=== PATIENT | female | born 1960 | race Caucasian/White ===

== ENCOUNTER 2017-11-03 09:21 | Day surgery (SDC) | payer BC ==
[~2017-11-03 09:21] MED LIST: Buffered Lidocaine 0.9% SYRIN* 5 ML/SYR SYRINGE INTRADERM ONE; Dexamethasone IV* 4 MG/ML 1 ML (4 MG) IV SLOW PU ONE; Famotidine IV* 10 MG/ML 2 ML (20 mg) IV ONE
[2017-11-03] MEDS ORDERED: Dexamethasone IV* 4 MG/ML 1 ML (4 MG) ONE (09:43)
[2017-11-03] MEDS ORDERED: Famotidine IV* 10 MG/ML 2 ML (20 mg) ONE (09:43)
[2017-11-03] MEDS ORDERED: Naloxone* 0.4 MG/ML 1 ML VIAL IV PRN (11:35)
[2017-11-03] MEDS ORDERED: DiMENhydriNATE IV* 50 MG/ML VIAL IV PUSH PRN (11:35)
[2017-11-03] MEDS ORDERED: fentaNYL* 50 MCG/ML 2 ML VIAL (100 MCG VIAL) IV PRN (11:35)
[2017-11-03] MEDS ORDERED: Ondansetron INJ* 2 MG/ML VIAL IV PRN (11:35)
[2017-11-03] MEDS ORDERED: oxyCODONE/Acetamin 5/325 MG* TAB PO PRN (11:35)
[2017-11-03] MEDS ORDERED: fentaNYL* 50 MCG/ML 2 ML VIAL (100 MCG VIAL) ONE (11:43)
[2017-11-03] MEDS ORDERED: Ketorolac INJ* 30 MG/ML 1 ML VIAL ONE (11:43)
[2017-11-03] MEDS ORDERED: Propofol* 10 MG/ML 20 ML BTL IV PUSH ONE ×2 (11:43→11:45)
[2017-11-03] MEDS ORDERED: Ondansetron INJ* 2 MG/ML VIAL ONE (11:43)
[2017-11-03] MEDS ORDERED: Chloroprocaine 2%* 20 ML VIAL ONE (11:44)
[2017-11-03] MEDS ORDERED: Ibuprofen TAB* 600 MG ONE (14:58)
[2017-11-03 15:09] VITALS: BP 107/81
--- NOTE | 2017-11-04 13:35 | OP ---
DATE OF OPERATION: 11/03/17 - [facility] DATE OF : 58 SURGEON: Yasemin Reyes MD QUILL LAYER: None. ANESTHESIOLOGIST: Emre Queen MD ANESTHESIA: Spinal PRE-OP DIAGNOSIS: Postmenopausal bleeding, endometrial thickening on ultrasound. POST-OP DIAGNOSIS: Postmenopausal bleeding, endometrial thickening on ultrasound. OPERATIVE PROCEDURE: Dilation curettage and hysteroscopy. ESTIMATED BLOOD LOSS: Minimal. URINE OUTPUT: 250 cc of clear yellow urine. FLUIDS: 1400 cc of crystalloid. FINDINGS: Revealed normal endometrial lining. No evidence of excrescences, polyps, or mass. Normal tubal ostia seen. Very thin endometrium without evidence of any thickening. Normal endocervical canal, small nabothian cyst noted on cervix. COMPLICATIONS: None apparent. DISPOSITION: Stable to recovery room. DESCRIPTION OF PROCEDURE: The patient was placed in dorsal lithotomy position. Legs were placed in Woodworth Holland stirrups. The perineum and vagina were prepped and draped in a sterile standard fashion. The patient was identified with universal protocol for correct procedure, position, and patient. A sterile speculum was inserted after drainage of the bladder with self-cath for clear yellow urine 250 cc. The cervix was visualized, grasped in the anterior lip with a single- tooth tenaculum and dilated using Hegar dilators to #6. A 5- mm hysteroscope was then inserted. Normal uterine cavity was visualized without evidence of masses, excrescences, or thickening and the tissue was noted to be very thin and atrophic. Hysteroscope was then removed. A sharp curettage was then performed. Hysteroscope was inserted documenting excellent sampling of the endometrial canal. Hysteroscope was removed. The single-tooth tenaculum was removed. Sterile speculum was removed. The patient was returned to the dorsal supine position and taken to the recovery room in stable condition. All sponge, instrument, and blade counts were correct throughout the case. The patient tolerated the procedure well and went to recovery room in stable condition. [id number]/[facility] #: [id number] [facility]
== END 2017-11-03 15:08 | disposition home or self-care (01) ==
LOC: OR 09:21
PROVIDERS: ATTEND Obstetrics & Gynecology
DX: Z01.818 Encounter for other preprocedural examination (principal); N95.0 Postmenopausal bleeding; R93.8 Abnormal findings on diagnostic imaging of other specified body structures; I10 Essential (primary) hypertension; E78.00 Pure hypercholesterolemia, unspecified; F41.9 Anxiety disorder, unspecified; Z88.2 Allergy status to sulfonamides
CPT/HCPCS: 62323; 88305; A9270-GY; J1100; J1885; J2400; J2405; J2704; J3010

== ENCOUNTER → 2019-02-14 05:50 | Day surgery (SDC) | payer OTHER ==
[~2019-02-14 05:50] MED LIST changes: -Buffered Lidocaine 0.9% SYRIN* 5 ML/SYR SYRINGE INTRADERM ONE; +Buffered Lidocaine 1% SYRIN* 1 ML/SYRINGE INTRADERM ONE; +Bupivacaine 0.25% SDV PF* 10 ML VIAL INJ ONE; +Bupivacaine 0.5%* 50 ML VIAL ONE; +Chloroprocaine 2%* 20 ML VIAL ONE; -Dexamethasone IV* 4 MG/ML 1 ML (4 MG) IV SLOW PU ONE; +Dexamethasone TAB* 4 MG ONE; +Dexamethasone TAB* 4 MG PO ONE; +DiMENhydriNATE IV* 50 MG/ML VIAL IV PUSH PRN; +Famotidine IV* 10 MG/ML 2 ML (20 mg) ONE; +KETAMINE HCL* 50 MG/ML 10 ML VIAL ONE; +Lactated Ringers 1000 ML Bag* 1,000 ML IV SCH; +Metoprolol Tartrate IV* 1 MG/ML 5 ML VIAL ONE; +Midazolam* 1 MG/ML 5 ML VIAL (5 MG) ONE; +Morphine 4 MG/ML VIAL (1 ml) 4 MG/ML VIAL IV PRN; +Naloxone* 0.4 MG/ML 1 ML VIAL IV PRN; +Ondansetron ODT TAB* 4 MG ONE; +Ondansetron TAB* 4 MG PO ONE; +PROCHLORPERAZINE INJ 5 MG/ML 2 ML VIAL IV PRN; +Propofol* 500 MG/50 ML BTL ONE; +Scopolamine 1.5 mg* PATCH TRANSDERM PRN; +Scopolamine PATCH Remove* 1 NOTE MISC PATCH OFF ONE; +ceFAZolin 2 GM in NS PREMIX(*) 2 GM/100 ML BAG IVPB ONE; +fentaNYL* 50 MCG/ML 2 ML VIAL (100 MCG VIAL) IV PRN; +fentaNYL* 50 MCG/ML 2 ML VIAL (100 MCG VIAL) ONE; +hydrALAZINE IV* 20 MG/ML VIAL ONE; +oxyCODONE/Acetamin 5/325 MG* TAB ONE; +oxyCODONE/Acetamin 5/325 MG* TAB PO PRN
--- NOTE | 2019-02-14 09:31 | OP ---
Operative Report - Blank - Operative Report Date of Operation: 02/14/19 Note: PATIENT: Rosalva Peres DATE OF : 1960 DATE OF SURGERY: 02/14/2019 SURGEON: Klever Prescott MD ION IMPLANT MACHINE OPERATOR: TANIKA Diggs, whos assistance was necessary for positioning, retraction, help with instrumentation, and closure. ANESTHESIOLOGIST: Dr. Say Currie PREOPERATIVE DIAGNOSIS: Left peroneal tenosynovitis and peroneus brevis tear. Left calcaneal exostosis. Painful left os trigonum. POSTOPERATIVE DIAGNOSIS: Left peroneal tenosynovitis and peroneus brevis tear. Left calcaneal exostosis. Painful left os trigonum. OPERATION: 1. Left peroneus brevis tendon repair. 2. Left synovectomy of peroneal tendon sheath. 3. Left calcaneal saucerization with excision of an enlarged peroneal tubercle. 4. Left excision of os trigonum ANESTHESIA: Spinal IMPLANTS: none TOURNIQUET TIME: Less than 1 hour with a well-padded calf tourniquet at 225mmHg SPECIMENS: none ESTIMATED BLOOD LOSS: minimal COMPLICATIONS: none STATUS: Stable from the operating room to the recovery room and then home. INDICATIONS FOR PROCEDURE: Rosalva has had persistent lateral and posterior ankle pain. Both operative and non operative treatment alternatives were reviewed. Further, the nature and risks of surgery were reviewed in careful detail, in the office as well as the pre-operative holding area. Our discussions regarding the risks of surgery included, but were not limited to, infection, wound problems, nerve injury, neuroma, RSD, persistent symptoms, blood clot, failure of the surgery, and even the remote chance of catastrophic complication, including loss of limb. DESCRIPTION OF PROCEDURE: The patient was seen in the preoperative holding unit and informed written consent was obtained. The appropriate extremity was marked. The patient was then brought to the operating room and carefully positioned on the operating room table. Anesthesia was induced. All bony prominences were padded with great care. A chlorhexidine based pre-scrub was performed followed by a chloraprep prep and drape in standard sterile fashion. A surgical safety pause was then conducted in which we confirmed the appropriate patient, extremity, planned procedure, availability of equipment, indication and administration of prophylactic antibiotics, and DVT prophylaxis in the form of a compression boot on the non-surgical extremity. I began with placement of a sterile calf tourniquet 3 finger-breadths distal to the fibular neck. An Esmarch exsanguination of the limb was then performed and the tourniquet inflated. I utilized an incision overlying the peroneal tendons laterally. I carried the dissection down through the soft tissue to the level of the periosteum and superior peroneal retinaculum (SPR) with care taken to protect the sural nerve, which was not visualized during the procedure. I carefully incised the SPR off of the posterior fibula to expose the peroneal tendons. Dissection of the tendons was carried distally. There was a large amount of inflamed tenosynovium within the tendon sheath. An extensive synovectomy was performed. Additionally, there was a low-lying peroneus brevis muscle belly which was debrided and excised. The tendons were explored at this time for any tears. There was a longitudinal split tear of the peroneus brevis at the level of the distal fibula. I removed a small slip of loose frayed tendon in this area, leaving approximately 95% of the tendon intact. I then utilized a 3-0 Ethibond suture to repair the tendon tear. I then exposed the enlarged peroneal tubercle. I took down the gliding layer and then utilized a rongeur to remove this large tubercle, thus performing a saucerization of the calcaneus. At this point, I carefully inspected the peroneal groove at the posterior aspect of the fibula. This was deemed to have adequate depth so the decision was made not to perform a groove deepening procedure. I then dissected along the posterior fibula to the posterior ankle joint. The os trigonum was identified and freed of soft tissue attachments. It was then excised. The wound was then irrigated. At this point I carefully planned out the repair of the superior peroneal retinaculum. I then reduced the tendons and they sat nicely in the retro- fibular groove. The wound was copiously irrigated. I repaired the SPR utilizing #1 Vicryl suture in a transosseous horizontal mattress suture pattern. I utilized multiple sutures for this repair, appropriately tensioning the SPR. I was able to pass a [place] under the repaired SPR without difficulty after the repair. We then irrigated the wound copiously again. The wound was closed in a layered fashion utilizing 3-0 Monocryl and 3-0 nylon. A sterile dressing was then applied and the ankle was splinted in a neutral position. All needle and sponge counts were correct at the end of the case. The patient was awakened from anesthesia and transferred to the recovery room in stable condition. There were no complications. ATTESTATION: I attest I was present and scrubbed and performed the critical portions of the procedure myself. POST-OPERATIVE PLAN: The patient will remain [id number] for an anticipated duration of 6 weeks. Follow up will be in 2 weeks for likely suture removal and transition into a short leg cast.
[2019-02-14 12:23] VITALS: BP 131/71
== END | disposition home or self-care (01) ==
LOC: OR 05:50
PROVIDERS: ATTEND Orthopaedic Surgery
DX: S86.312D Strain of muscle(s) and tendon(s) of peroneal muscle group at lower leg level, left leg, subsequent encounter (principal); I10 Essential (primary) hypertension; E78.5 Hyperlipidemia, unspecified; Z88.2 Allergy status to sulfonamides; Z91.030 Bee allergy status; X58.XXXD Exposure to other specified factors, subsequent encounter
CPT/HCPCS: A9270-GY; C1776; J0360; J0690; J2250; J2400; J2704; J3010; J3490; J8540

== ENCOUNTER → 2019-10-11 05:51 | Day surgery (SDC) | payer BC ==
[~2019-10-11 05:51] MED LIST changes: +Acetaminophen IV 1GM/100ML * 1,000 MG/100 ML VIAL IVPB ONE; +Acetaminophen IV 1GM/100ML * 100 ML ONE; +Bupivacaine 0.25% EPI 200,000* 30 ML SDV ONE; -Bupivacaine 0.25% SDV PF* 10 ML VIAL INJ ONE; +Bupivacaine 0.25% SDV* 30 ML ONE; -Bupivacaine 0.5%* 50 ML VIAL ONE; -Chloroprocaine 2%* 20 ML VIAL ONE; +Dexamethasone IV* 4 MG/ML 1 ML (4 MG) ONE; -Dexamethasone TAB* 4 MG ONE; -Dexamethasone TAB* 4 MG PO ONE; +DiMENhydriNATE IV* 50 MG/ML VIAL ONE; +EPHEDrine (Pressors)* 50 MG/ML VIAL ONE; +HYDROmorphone INJ1* 1 MG/ML SYRINGE ONE; -KETAMINE HCL* 50 MG/ML 10 ML VIAL ONE; +Ketorolac INJ* 30 MG/ML 1 ML VIAL ONE; +Lidocaine 2% PF * 5 ML VIAL ONE; -Metoprolol Tartrate IV* 1 MG/ML 5 ML VIAL ONE; -Morphine 4 MG/ML VIAL (1 ml) 4 MG/ML VIAL IV PRN; +Ondansetron INJ* 2 MG/ML VIAL ONE; -Ondansetron ODT TAB* 4 MG ONE; -Ondansetron TAB* 4 MG PO ONE; -PROCHLORPERAZINE INJ 5 MG/ML 2 ML VIAL IV PRN; +Propofol* 10 MG/ML 20 ML BTL ONE; -Propofol* 500 MG/50 ML BTL ONE; +Rocuronium* 10 MG/ML VIAL ONE; -Scopolamine 1.5 mg* PATCH TRANSDERM PRN; -Scopolamine PATCH Remove* 1 NOTE MISC PATCH OFF ONE; +Succinylcholine* 20 MG/ML 10 ML VIAL ONE; +Sugammadex * 200 MG/2 ML VIAL IV PUSH ONE; +Sugammadex * 500 MG/5 ML VIAL IV PUSH ONE; -fentaNYL* 50 MCG/ML 2 ML VIAL (100 MCG VIAL) IV PRN; -hydrALAZINE IV* 20 MG/ML VIAL ONE; -oxyCODONE/Acetamin 5/325 MG* TAB ONE; -oxyCODONE/Acetamin 5/325 MG* TAB PO PRN
--- NOTE | 2019-10-11 08:59 | BRIEFOPN ---
Brief Operative/Procedure Note - Operation Details Pre-Op Diagnosis: symptomatic cholelithiasis Post-Op Diagnosis: same Procedures: laparoscopic cholecystectomy Surgeon(s)/Proceduralists: Fernando. Assist: TANIKA Diallo Anesthesia: GET Estimated Blood Loss: < 50 ml Findings: as above Specimen(s)/Culture(s) Description: gallbladder Complications: none
[2019-10-11] MEDS: HYDROmorphone INJ1* 1 MG/ML SYRINGE IV PRN ×5 (09:42→10:56)
[2019-10-11 11:47] VITALS: BP 116/67
--- NOTE | 2019-10-11 12:58 | OP ---
DATE OF OPERATION: 10/11/19 - [facility] DATE OF : 58 SURGEON: Hitesh King MD FINANCIAL REPORTING CONSULTANT: TANIKA Mancia ANESTHESIOLOGIST: Dr. Poon. ANESTHESIA: General with local. PRE-OP DIAGNOSIS: Right upper quadrant abdominal pain, cholelithiasis. POST-OP DIAGNOSIS: Right upper quadrant abdominal pain, cholelithiasis. OPERATIVE PROCEDURE: Laparoscopic cholecystectomy. IV FLUIDS: 1 L of crystalloid. ESTIMATED BLOOD LOSS: Minimal. SPECIMENS: Gallstones. WOUND CLASSIFICATION: III. DRAINS: None. COMPLICATIONS: None. FINDINGS: There was no evidence of acute or chronic inflammation of the gallbladder, but it was mildly dilated. The liver appeared to be slightly fatty. It was unremarkable. No other abnormalities noted on the general laparoscopic evaluation. DESCRIPTION OF PROCEDURE: Written and informed consent was obtained, the abdomen was marked with indelible ink and preoperative antibiotics were administered. The patient was taken to the operating room, placed in the supine position. Sequential compression devices and a warming blanket were applied. General anesthesia was administered and the abdomen was prepped and draped in the usual sterile fashion. Time-out verification was completed. Initially, a small transverse incision was made just above the umbilicus and the midline fascia was divided. The patient has had previous breast reconstruction with a free skin and subcutaneous tissue flap taken from the lower abdomen. There was some scar tissue in the subcutaneous tissue. I divided the fascia and it was unclear as to whether there may have been a very thin layer of thin walled mesh, but this was divided and the peritoneal cavity was then entered under direct vision without difficulty. A 12 mm blunt port was inserted and the abdomen was insufflated to 15 mmHg. Camera was inserted. There was no evidence of intraabdominal adhesions. There was no fluid. The bowel and the peritoneal surfaces all appeared to be unremarkable. The gallbladder was noted to be slightly whitish in color, but no evidence of acute or chronic inflammation. It was mildly dilated. The liver was normal appearing , although had some fatty infiltrate to it. A 12 mm epigastric port was placed and two 5 mm ports were placed in the right side of the abdominal wall. The gallbladder was elevated up over the liver bed with care. The infundibulum was identified and the peritoneum along the medial and lateral aspects of this area was divided and swept down to expose the cystic duct and cystic artery. There was some mild chronic appearing scar tissue, but this was rather unremarkable and the cystic duct appeared to be of normal size and was not dilated. I took a considerable portion of the infundibulum off the liver bed using the critical view technique to assure myself of these two structures as they entered the gallbladder. The cystic duct and artery were then doubly clipped and divided. The gallbladder was removed from the liver bed using a cautery and placed in an EndoCatch bag and brought out through the epigastric incision. Hemostasis was assured. All ports were removed under the direct vision of the camera. There was no abdominal wall bleeding. The umbilical fascia was closed with interrupted 0 Vicryl suture. The skin and all 4 incisions were approximated with subcuticular 4-0 Vicryl suture. Steri-Strips were applied. The patient tolerated the procedure well and was taken to the recovery room in stable condition. [id number]/[facility] #: [id number] [facility]
== END | disposition home or self-care (01) ==
LOC: OR 05:51
PROVIDERS: ATTEND Surgery
PROC: 0FT44ZZ Resection of Gallbladder, Percutaneous Endoscopic Approach (ICD-10-PCS; principal; 2019-10-11 07:30)
DX: K80.10 Calculus of gallbladder with chronic cholecystitis without obstruction (principal); R10.11 Right upper quadrant pain; I10 Essential (primary) hypertension; E78.5 Hyperlipidemia, unspecified; G47.33 Obstructive sleep apnea (adult) (pediatric); K21.9 Gastro-esophageal reflux disease without esophagitis; F41.8 Other specified anxiety disorders; I97.2 Postmastectomy lymphedema syndrome; Z85.3 Personal history of malignant neoplasm of breast; Z90.722 Acquired absence of ovaries, bilateral; Z88.2 Allergy status to sulfonamides; Z91.030 Bee allergy status
CPT/HCPCS: 88304; J0330; J0690; J1100; J1170; J1240; J1885; J2250; J2405; J2704; J3010; J3490

== ENCOUNTER 2020-01-20 20:14 | Inpatient (IN) | payer BC, OTHER ==
[2020-01-20] MEDS ORDERED: Acetaminophen TAB* 325 MG PO ONE (20:37)
[2020-01-20] MEDS ORDERED: NS 0.9% 1000 ML** 1,000 ML IV ONE ×2 (20:37→20:43)
[2020-01-20] MEDS ORDERED: Albuterol HFA INHALER* 8 gm MDI INH ONE ×2 (20:39→22:04)
--- NOTE | 2020-01-20 20:39 | ED ---
Respiratory - HPI Summary HPI Summary: Patient complains of sudden onset of fever up to 103, dry cough, shortness of breath, sore throat, body aches, cellulitis to right arm starting around 6 PM today. History of lymphedema to right arm with occasional cellulitis to right arm. Denies trauma to right arm. Denies ear pain, neck stiffness, CP, N/V/V/D , abdominal pain, change in urine, change in BM. Medical history is HDL, HTN. Non smoker - History of Current Complaint Stated Complaint: FEVER/COUGH PER PT Time Seen by Provider: 01/20/20 20:26 Hx Obtained From: Patient Onset/Duration: Sudden Onset, Lasting Hours Timing: Constant Initial Severity: Moderate Current Severity: Moderate Character: Cough (Nonproductive) Sputum Amount: None Aggravating Factor(s): Nothing Alleviating Factor(s): Nothing Associated Signs and Symptoms: Fever, SOB - Allergy/Home Medications Allergies/Adverse Reactions: Allergies Allergy/AdvReac Type Severity Reaction Status Date / Time Sulfa (Sulfonamide Allergy Intermediate Hives Verified 01/20/20 21:13 Antibiotics) bee stings Allergy Severe Anaphylatic Uncoded 01/20/20 21:13 Shock Home Medications: Home Medications Atorvastatin* [Lipitor 20 MG*] 10 mg PO QPM 09/11/14 [History Confirmed 01/20/20 ] EPINEPHrine PEN ADULT(NF) [Epipen ADULT*] 0.3 mg .SEE ORDER ONCE PRN 09/11/14 [ History Confirmed 01/20/20] ALPRAZolam [Xanax] 0.25 mg PO TID PRN 03/01/17 [History Confirmed 01/20/20] Multivit with Calcium,Iron,Min [Multiple Vitamins For Women] 1 tab PO QPM [History Confirmed 01/20/20] Ibuprofen TAB* [Advil TAB*] 400 mg PO Q6H PRN 11/02/17 [History Confirmed ] Cholecalciferol TAB* [Vitamin D TAB*] 1,000 unit PO BEDTIME 11/03/17 [History Confirmed 01/20/20] Fluticasone NASAL SPRAY 50MCG* [Flonase NASAL SPRAY 50MCG*] 1 spray BOTH NARES DAILY PRN 10/09/19 [History Confirmed 01/20/20] PMH/Surg Hx/FS Hx/Imm Hx Endocrine/Hematology History: Denies: Hx Diabetes Cardiovascular History: Reports: Hx Hypertension - no longer on med/ HX OF INCREASE BP INTRAOP AND POSTOP SURGERY 01/2019 Denies: Hx Pacemaker/ICD, Other Cardiovascular Problems/Disorders Respiratory History: Reports: Hx Sleep Apnea - history of-REPORTS SURGERY FOR IN 2010-NONE SINCE Denies: Other Respiratory Problems/Disorders GI History: Reports: Hx Gastroesophageal Reflux Disease - ON MEDICATION FOR Denies: Hx Hiatal Hernia, Hx Ulcer, Other GI Disorders History: Denies: Hx Renal Disease, Other Problems/Disorders Musculoskeletal History: Reports: Hx Bursitis - History of in one of hips, not sure which Denies: Hx Osteoporosis, Hx Tendonitis, Other Musculoskeletal History Sensory History: Denies: Hx Cataracts, Hx Contacts or Glasses - Lasik surgery 2001, Hx Glaucoma, Hx Hearing Aid Opthamlomology History: Denies: Hx Cataracts, Hx Contacts or Glasses - Lasik surgery 2001, Hx Glaucoma EENT History: Denies: Hx Deafness Neurological History: Reports: Hx Migraine - as a young adult Denies: Other Neuro Impairments/Disorders Psychiatric History: Reports: Hx Anxiety - PRN MEDICATION FOR, Hx Depression - prn med Denies: Hx Panic Disorder - Cancer History Cancer Type, Location and Year: BREAST - MASTECTOMY Hx Chemotherapy: Yes Hx Radiation Therapy: No - Surgical History Surgery Procedure, Year, and Place: Right mastectomy 2007 [place]. Left mastectomy 2008 [place]. Bilateral Salpingo-Oophorectomy 2008 [place]. D &C [address] [employer] [employer] [employer]. Right Axilla Lymph Node Dissection (d/t lymphedema) -[place]. Throat reconstruct for BOONE incl deviated septum, Tonsillectomy, Adenoidectomy 2010 [place]. Right wrist ganglion cyst removal 1969 - [place]. LASIK EYE - SURG. 2008 - [place] - BREAST RECONSTRUCTION. D&C 2017. 01/2019-PERONEAL TEAR REPAIR LEFT ANKLE Hx Anesthesia Reactions: Yes - after breast reconstruction-17 hrs -hard time getting breathing on own - Family History Known Family History: Positive: Non-Contributory - Social History Alcohol Use: Weekly Alcohol Amount: 1 PER WEEK Substance Use Type: Reports: None Smoking Status (MU): Never Smoked Tobacco Have You Smoked in the Last Year: No Review of Systems Positive: Fever Eyes: Negative Positive: Sore Throat Cardiovascular: Negative Positive: Shortness Of Breath, Cough Gastrointestinal: Negative Genitourinary: Negative Positive: Myalgia Skin: Negative Positive: Headache Psychological: Normal All Other Systems Reviewed And Are Negative: Yes Physical Exam - Summary Physical Exam Summary: Almost circumferential erythema of right upper extremity from wrist to elbow. Positive extra warmth. Normal flexion and extension of right wrist and right elbow. Triage Information Reviewed: Yes Vital Signs Reviewed: Yes Appearance: Positive: Well-Appearing Skin: Positive: Warm Head/Face: Positive: Normal Head/Face Inspection Eyes: Positive: Normal ENT: Positive: Normal ENT inspection Neck: Positive: Supple Respiratory/Lung Sounds: Positive: Clear to Auscultation Cardiovascular: Positive: Tachycardia Abdomen Description: Positive: Nontender Musculoskeletal: Positive: Normal Neurological: Positive: Normal Psychiatric: Positive: Normal AVPU Assessment: Alert - [place] Coma Scale Best Eye Response: 4 - Spontaneous Best Motor Response: 6 - Obeys Commands Best Verbal Response: 5 - Oriented Coma Scale Total: 15 Procedures - Sedation Patient Received Moderate/Deep Sedation with Procedure: No Diagnostics - Laboratory Result Diagrams: 01/20/20 20:45 01/20/20 20:45 Lab Statement: Any lab studies that have been ordered have been reviewed, and results considered in the medical decision making process. Disposition - Course Course Of Treatment: Patient complains of sudden onset of fever up to 103, dry cough, shortness of breath, sore throat, body aches, cellulitis to right arm starting around 6 PM today. History of lymphedema to right arm with occasional cellulitis to right arm. Denies trauma to right arm. Denies ear pain, neck stiffness, CP, N/V/V/D, abdominal pain, change in urine, change in BM. Medical history is HDL, HTN. Non smoker. Initially febrile 100.8, heart rate 130, respiratory rate 44. WBC 14.7. Chest x-ray suspicious for early developing infiltrate in right lobe. lymphangitis right upper extremity. EKG sinus tachycardia, heart rate of 127. Patient placed on 4 L O2 with improvement in respiratory rate. She still continuing to have some work of breathing. Admitted to hospitalist. - Diagnoses Provider Diagnoses: Sepsis, Pneumonia, Lymphangitis Discharge ED - Sign-Out/Discharge Documenting (check all that apply): Patient Departure - Discharge Plan Condition: Fair Disposition: ADMITTED TO [facility] - Billing Disposition and Condition Condition: FAIR Disposition: Admitted to [facility] - Attestation Statements Provider Attestation: pt seen by midlevel provider independently, based on their assessment, it was not necessary to present the case to me but I was available for consultation. I did not form a physician-patient relationship with the patient. The chart however, has been reviewed. am signing this note strictly in an administrative capacity.
[2020-01-20] MEDS ORDERED: cefTRIAXone(*) 1 GM in NS 0.9% 50 ML* 50 ML IVPB ONE (20:44)
[2020-01-20] MEDS ORDERED: Azithromycin 500 mg/250 ml NS 500 MG/250 ML BAG IVPB ONE (20:44)
[2020-01-20] MEDS: Lactated Ringers 1000 ML Bag* 1,000 ML IV SCH ×2 (21:12→23:00)
[2020-01-20 21:20] LABS: ABS Lymphocytes 0.7 10^3/ul (1.0-4.8); ABS Monocytes 0.7 10^3/ul (0-0.8); ABS Neutrophils 13.2 10^3/ul (1.5-7.7); Eosinophil % 0.2 %; Hematocrit 39 % (35-47); Hemoglobin 13.6 g/dL (12.0-16.0); Lymphocyte % 4.6 %; Mean Corpuscular HGB Conc 35 g/dL (31-36); Mean Corpuscular Hemoglobin 31 pg (27-31); Mean Corpuscular Volume 87 fL (80-97); Mean Platelet Volume 7.9 fL (7.4-10.4); Platelet Count 241 10^3/uL (150-450); Red Blood Count 4.45 10^6 /uL (3.70-4.87); Red Cell Distribution Width 14 % (10-15); White Blood Count 14.7 10^3/uL (3.5-10.8)
[2020-01-20 21:35] LABS: Albumin 4.5 g/dL (3.2-5.2); Albumin/Globulin Ratio 1.7 (1-3); BUN/Creatinine Ratio 22.1 (8-20); C Reactive Protein 3.09 mg/L (<8.01); Calcium 9.8 mg/dL (8.6-10.3); EGFR African American 106.8 (>60); EGFR Non-African American 88.3 (>60); Globulin 2.6 g/dL (2-4); Potassium 4.1 mmol/L (3.5-5.0); Total Bilirubin 0.6 mg/dL (0.2-1.0); Total Protein 7.1 g/dL (6.4-8.9)
[2020-01-20 21:45] LABS: Influenza A Molecular Negative (Negative); Influenza B Molecular Negative (Negative)
--- OUTSIDE RECORDS SUMMARY | 2020-01-20 22:02 | XMS REPORT | Continuity of Care Document ---
:1960 External Reference #:[id number] Author Name Jamie Gray M.D. Address [address] [place] [address] Care Team Providers Name Role Phone Sy MEJIA, Keegan - Internal Care Team Information Township Clerk [phone] Medicine Problems Description No Information Available Social History Type Date Description Comments Sex Unknown ETOH Use Occasionally consumes alcohol Tobacco Use Start: Unknown Patient has never smoked Smoking Status Reviewed: 11/28/19 Patient has never smoked Allergies, Adverse Reactions, Alerts Active Allergies Reaction Severity Comments Date Sulfa Antibiotics 12/06/2016 Medications Active Medications SIG Qnty Indications Ordering Provider Date Lipitor Unknown 10mg Tablets Multivitamin Adult Unknown Tablets Vitamin D by mouth every Unknown 1000Unit Tablets day Omeprazole Elie Peck NP 20mg Capsules DR Zavala Description No Information Available Vital Signs Date Vital Result Comment 11/28/2019 1:16pm Intraocular Pressure Right Eye 17 mmHg Intraocular Pressure Left Eye 17 mmHg 02/06/2018 2:47pm Intraocular Pressure Right Eye 12 mmHg Intraocular Pressure Left Eye 12 mmHg Results Description No Information Available Procedures Date Code Description Status 11/28/2019 93783 Refraction Completed 11/28/2019 99554 Eye Exam Est Comprehensive Completed Medical Devices Description No Information Available Encounters Description No Information Available Assessments Date Code Description Provider 11/28/2019 H25.13 Age-related nuclear cataract, bilateral Jamie Gray M.D. 11/28/2019 H52.4 Presbyopia Jamie Gray M.D. Plan of Treatment 11/28/2019 - Jamie Gray M.D.H25.13 Age-related nuclear cataract, [id number] PresbyopiaFollow up:1 yr Functional Status Description No Information Available Mental Status Description No Information Available Referrals Description No Information Available
[2020-01-20] MEDS ORDERED: Magnesium Sulfate 2 GM IV* 2 GM/50 ML BAG IVPB ONE (22:05)
[2020-01-20] MEDS ORDERED: Magnesium Sulfate 2 GM IV* 2 GM/50 ML BAG ONE (22:07)
[2020-01-20 22:36] LABS: TSH (Thyroid Stimulating Horm) 0.88 mcIU/mL (0.34-5.60)
[2020-01-20] MEDS ORDERED: ALPRAZolam TAB* 0.25 MG PO PRN (23:19)
[2020-01-21] MEDS ORDERED: Albuterol/Ipratropium NEB.SOL* Albuterol 2.5 MG/Ipratropium 0.5 MG 3 ML INH PRN (00:45)
[2020-01-21] MEDS ORDERED: Fluticasone NASAL SPRAY 50MCG* 16 gm SPRAY BTL BOTH NARES PRN (00:45)
[2020-01-21] MEDS: Acetaminophen TAB* 325 MG PO PRN ×3 (01:26→18:45)
[2020-01-21 04:37] LABS: ABS Basophils 0.1 10^3/ul (0-0.2); ABS Lymphocytes 1.2 10^3/ul (1.0-4.8); ABS Monocytes 0.8 10^3/ul (0-0.8); ABS Neutrophils 13.6 10^3/ul (1.5-7.7); Hematocrit 34 % (35-47); Hemoglobin 11.8 g/dL (12.0-16.0); Lymphocyte % 7.6 %; Mean Corpuscular HGB Conc 35 g/dL (31-36); Mean Corpuscular Hemoglobin 30 pg (27-31); Mean Corpuscular Volume 88 fL (80-97); Mean Platelet Volume 7.6 fL (7.4-10.4); Platelet Count 211 10^3/uL (150-450); Red Blood Count 3.89 10^6 /uL (3.70-4.87); Red Cell Distribution Width 14 % (10-15); White Blood Count 15.7 10^3/uL (3.5-10.8)
[2020-01-21 04:53] LABS: BUN/Creatinine Ratio 18.5 (8-20); Calcium 8.8 mg/dL (8.6-10.3); EGFR African American 139.3 (>60); EGFR Non-African American 115.2 (>60); Magnesium 2.1 mg/dL (1.9-2.7); Potassium 3.9 mmol/L (3.5-5.0)
[2020-01-21] MEDS: Heparin VIAL(*) 5000 UNITS/ML VIAL (FIVE THOUSAND) SUBCUT SCH ×3 (06:23→21:22)
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
[2020-01-21] MEDS ORDERED: Albuterol HFA INHALER* 8 gm MDI INH PRN ×2 (09:17→09:23)
[2020-01-21] MEDS ORDERED: Vancomycin(*) 1,000 MG in NS 0.9% 250 ML* 250 ML IV ONE (10:00)
--- NOTE | 2020-01-21 13:01 | PN ---
Progress Note - Progress Note Date of Service: 01/21/20 Note: Progress Note -- Critical Care 24 hour events/significant events: - Patient admitted to ICU with SOB, fevers, body aches, likely right arm cellulitis. - She does not report much of an improvement this morning. She still feels SOB, chest tightness, and difficulty speaking in full sentences. - She states that her right arm feels slightly better, but still remains hard, hot, and tender to touch. She denies any injury to the area ROS: negative except for pertinent positives mentioned above Tele: nsr Vitals: Vital Signs 01/20/20 01/20/20 01/20/20 20:40 21:33 22:00 Temperature 100.8 F Pulse Rate 120 127 139 Respiratory 26 20 28 Rate Blood Pressure 142/82 124/74 (mmHg) O2 Sat by Pulse 98 96 92 Oximetry 01/20/20 01/20/20 01/20/20 22:03 22:33 23:00 Temperature Pulse Rate 131 128 123 Respiratory 24 30 22 Rate Blood Pressure 106/72 130/78 (mmHg) O2 Sat by Pulse 99 99 99 Oximetry 01/20/20 01/20/20 01/21/20 23:03 23:33 00:00 Temperature Pulse Rate 123 117 117 Respiratory 24 29 27 Rate Blood Pressure 133/74 119/68 (mmHg) O2 Sat by Pulse 98 99 98 Oximetry 01/21/20 01/21/20 01/21/20 00:03 00:18 00:40 Temperature 98.9 F Pulse Rate 115 115 115 Respiratory 31 24 24 Rate Blood Pressure 129/67 135/80 (mmHg) O2 Sat by Pulse 99 98 100 Oximetry 01/21/20 01/21/20 01/21/20 00:47 00:50 01:00 Temperature 99.0 F Pulse Rate 106 111 106 Respiratory 10 10 21 Rate Blood Pressure 139/70 139/70 119/72 (mmHg) O2 Sat by Pulse 98 100 97 Oximetry 01/21/20 01/21/20 01/21/20 01:15 01:30 01:45 Temperature Pulse Rate 108 103 101 Respiratory 16 17 20 Rate Blood Pressure 112/71 116/71 113/72 (mmHg) O2 Sat by Pulse 97 99 99 Oximetry 01/21/20 01/21/20 01/21/20 02:00 02:30 02:45 Temperature Pulse Rate 102 95 96 Respiratory 19 20 21 Rate Blood Pressure 119/73 98/64 116/71 (mmHg) O2 Sat by Pulse 98 96 98 Oximetry 01/21/20 01/21/20 01/21/20 03:00 03:15 03:30 Temperature Pulse Rate 90 93 89 Respiratory 22 22 21 Rate Blood Pressure 97/70 108/71 112/65 (mmHg) O2 Sat by Pulse 99 99 99 Oximetry 01/21/20 01/21/20 01/21/20 03:45 04:00 04:15 Temperature 99.1 F Pulse Rate 92 91 93 Respiratory 26 22 18 Rate Blood Pressure 110/61 98/62 111/69 (mmHg) O2 Sat by Pulse 97 98 99 Oximetry 01/21/20 01/21/20 01/21/20 04:30 04:45 05:00 Temperature Pulse Rate 93 93 95 Respiratory 21 22 23 Rate Blood Pressure 106/61 94/65 97/65 (mmHg) O2 Sat by Pulse 98 95 95 Oximetry 01/21/20 01/21/20 01/21/20 05:15 05:30 05:45 Temperature Pulse Rate 94 98 92 Respiratory 22 12 24 Rate Blood Pressure 94/65 94/68 113/66 (mmHg) O2 Sat by Pulse 94 98 96 Oximetry 01/21/20 01/21/20 01/21/20 06:00 06:15 06:30 Temperature Pulse Rate 89 86 98 Respiratory 24 24 23 Rate Blood Pressure 109/65 109/69 133/71 (mmHg) O2 Sat by Pulse 96 99 98 Oximetry 01/21/20 01/21/20 01/21/20 06:45 07:00 07:15 Temperature Pulse Rate 92 92 101 Respiratory 27 25 8 Rate Blood Pressure 110/74 110/71 111/73 (mmHg) O2 Sat by Pulse 96 98 98 Oximetry 01/21/20 01/21/20 01/21/20 07:30 07:45 08:00 Temperature Pulse Rate 96 93 96 Respiratory 24 23 23 Rate Blood Pressure 114/66 112/66 106/67 (mmHg) O2 Sat by Pulse 96 96 95 Oximetry 01/21/20 01/21/20 01/21/20 08:49 09:00 10:00 Temperature 100.0 F Pulse Rate 101 99 Respiratory 14 30 Rate Blood Pressure 117/65 121/74 (mmHg) O2 Sat by Pulse 97 96 Oximetry 01/21/20 11:00 Temperature Pulse Rate 96 Respiratory 14 Rate Blood Pressure 111/49 (mmHg) O2 Sat by Pulse 97 Oximetry Intake and Output Last 24 Hours 01/19/20 01/20/20 01/21/20 01/22/20 06:59 06:59 06:59 06:59 Intake Total 1999 360 Output Total 2200 200 Balance -200 160 Weight 195 lb 4.8 oz Intake: IV Fluids 2000 Oral 360 Output: Urine 2200 200 O2: 2L NC Infusions: none Medications: Acetaminophen (Tylenol Tab*) 650 mg PO Q6H PRN PRN Reason: MILD PAIN or TEMP > 100.4 Last Admin: 01/21/20 09:53 Dose: 650 mg Albuterol (Ventolin Hfa Inhaler*) 2 puff INH Q2H PRN PRN Reason: SOB/WHEEZING Alprazolam (Xanax Tab*) 0.25 mg PO TID PRN PRN Reason: ANXIETY Atorvastatin Calcium (Lipitor*) 10 mg PO QPM [facility] Cholecalciferol (Vitamin D Tab*) 1,000 units PO BEDTIME [facility] Fluticasone Propionate (Flonase Nasal [place] 50mcg*) 1 spray BOTH NARES DAILY PRN PRN Reason: CONGESTION Heparin Sodium (Porcine) (Heparin Vial(*)) 5,000 units SUBCUT Q8HR [facility] Last Admin: 01/21/20 06:23 Dose: 5,000 units Azithromycin (Zithromax 500 Mg/250 Ml) 500 mg in 250 mls @ 250 mls/hr IVPB Q24H OMAR Ceftriaxone Sodium 1 gm/ (Sodium Chloride) 50 mls @ 100 mls/hr IVPB Q24H [facility] Multivitamins/Minerals (Theragran/Minerals Tab*) 1 tab PO QPM [facility] Physical Exam: Constitutional: awake, alert, no distress, no diaphoresis. Having difficulty speaking full sentences Head: normocephalic, atraumatic Eyes: no pallor, no icterus ENT: moist mucous membranes Neck: soft, supple, no jvd, no stridor CVS: normal rate, regular, no murmur Chest/Resp: bilateral air entry, appears diminshed throughout but unable to assess accurately d/t poor isolation stethescope, no rhales, no wheeze, no rhonchi, no acc muscle use Abdomen/GI: soft, nontender, nondistended, BS+ Ext/Msk: warm, pulses+, RUE swelling, redness, warmth Skin: intact, warm Neuro: awake, alert, orientedx3, moving all extremities, no gross focal deficit Psych: normal affect Labs: Laboratory Results - last 24 hr 01/20/20 01/20/20 01/20/20 20:45 20:45 20:45 WBC 14.7 H RBC 4.45 Hgb 13.6 Hct 39 MCV 87 MCH 31 MCHC 35 RDW 14 Plt Count 241 MPV 7.9 Neut % (Auto) 89.9 Lymph % (Auto) 4.6 [place] % (Auto) 5.1 Eos % (Auto) 0.2 Baso % (Auto) 0.2 Absolute Neuts (auto) 13.2 H Absolute Lymphs (auto) 0.7 L Absolute Monos (auto) 0.7 Absolute Eos (auto) 0.0 Absolute Basos (auto) 0.0 Absolute Nucleated RBC 0.0 Nucleated RBC % 0.0 D-Dimer, Quantitative Sodium 135 Potassium 4.1 Chloride 102 Carbon Dioxide 24 Anion Gap 9 BUN 15 Creatinine 0.68 Est GFR ( Amer) 106.8 Est GFR (Non-Af Amer) 88.3 BUN/Creatinine Ratio 22.1 H Glucose 121 H Lactic Acid 1.9 Calcium 9.8 Magnesium Total Bilirubin 0.60 AST 22 ALT 31 Alkaline Phosphatase 77 Troponin I 0.00 C-Reactive Protein 3.09 Total Protein 7.1 Albumin 4.5 Globulin 2.6 Albumin/Globulin Ratio 1.7 TSH 0.88 Influenza A (Rapid) Influenza B (Rapid) 01/20/20 01/21/20 01/21/20 20:45 04:15 04:15 WBC 15.7 H RBC 3.89 Hgb 11.8 L Hct 34 L MCV 88 MCH 30 MCHC 35 RDW 14 Plt Count 211 MPV 7.6 Neut % (Auto) 86.8 Lymph % (Auto) 7.6 [place] % (Auto) 5.2 Eos % (Auto) 0.0 Baso % (Auto) 0.4 Absolute Neuts (auto) 13.6 H Absolute Lymphs (auto) 1.2 Absolute Monos (auto) 0.8 Absolute Eos (auto) 0.0 Absolute Basos (auto) 0.1 Absolute Nucleated RBC 0.0 Nucleated RBC % 0.0 D-Dimer, Quantitative Sodium 136 Potassium 3.9 Chloride 108 Carbon Dioxide 23 Anion Gap 5 BUN 10 Creatinine 0.54 Est GFR ( Amer) 139.3 Est GFR (Non-Af Amer) 115.2 BUN/Creatinine Ratio 18.5 Glucose 120 H Lactic Acid Calcium 8.8 Magnesium 2.1 Total Bilirubin AST ALT Alkaline Phosphatase Troponin I C-Reactive Protein Total Protein Albumin Globulin Albumin/Globulin Ratio TSH Influenza A (Rapid) Negative Influenza B (Rapid) Negative 01/21/20 04:15 WBC RBC Hgb Hct MCV MCH MCHC RDW Plt Count MPV Neut % (Auto) Lymph % (Auto) [place] % (Auto) Eos % (Auto) Baso % (Auto) Absolute Neuts (auto) Absolute Lymphs (auto) Absolute Monos (auto) Absolute Eos (auto) Absolute Basos (auto) Absolute Nucleated RBC Nucleated RBC % D-Dimer, Quantitative 203 Sodium Potassium Chloride Carbon Dioxide Anion Gap BUN Creatinine Est GFR ( Amer) Est GFR (Non-Af Amer) BUN/Creatinine Ratio Glucose Lactic Acid Calcium Magnesium Total Bilirubin AST ALT Alkaline Phosphatase Troponin I C-Reactive Protein Total Protein Albumin Globulin Albumin/Globulin Ratio TSH Influenza A (Rapid) Influenza B (Rapid) Imaging: Chest xray 01/19: no active cardiopulmonary disease Assessment: 59F with known medical history of breast cancer s/p radical mastectomy and lymph node removal of right arm, HTN, and HLD presents on 01/19 after experiencing sudden onset of SOB, body aches, wheezing and temp of 103.5 around 1730. She also noted that her right arm was red, warm, swollen and tender to touch. Chest xray clear. Tested for COVID and placed on isolation. - Right arm cellulitis - shortness of breath Plan: Neuro- - No active issues -Delirium prec; avoid BDZ CVS- - HTN: chronic. Currently controlled on no medication. Does not take antihypertensive medications at home according to medication list -Maintain MAP>65 as long as SBP<160 Resp- - Acute SOB: concern for COVID. testing completed. - Onset was sudden. She is high risk for hypercoagulable state, considering her history of breast cancer. Will obtain CTA chest to r/o PE -Wean Fio2 to keep sat>92% -Bronchodilators PRN, Aspiration prec, Pulmonary Toilet ID- - Right arm cellulitis: acute, frequent episodes. Patient denies any trauma to the area - On admission, was started on ceftriaxone and azithromycin to cover cellulitis and any possible CAP. Will give [address] Caraballo and monitor symptoms. GI- -Nutrition: Regular -GI prophylaxis not indicated Renal- -strict I/O, replete to keep K>4, Mg>2 -voiding Heme- - Subq heparin for DVT prophylaxis Endo-Maintain BG<200, insulin protocol as needed Musculsk- pressure ulcer prophylaxis. OOB Wounds- none Nutrition- regular diet DVT prophylaxis: subq heparin Disposition: Patient is stable and ready for transfer to the floor Patient clinical status: stable Code Status:full
[2020-01-21] MEDS ORDERED: Iohexol 350* (CONTRAST) 500 ML MDV IV ONE ×2 (13:44→13:47)
[2020-01-21 14:57] LABS: Urine Appearance Clear; Urine Bilirubin Negative (Negative); Urine Blood Negative (Negative); Urine Color Yellow; Urine Glucose Negative (Negative); Urine Ketones Negative (Negative); Urine Nitrite Negative (Negative); Urine Protein Negative (Negative); Urine Urobilinogen Negative (Negative)
[2020-01-21] MEDS: Multivitamins/Minerals TAB PO SCH (18:44)
[2020-01-21] MEDS: Atorvastatin* 10 MG TAB PO SCH (18:45)
[2020-01-21] MEDS: cefTRIAXone(*) 1 GM in NS 0.9% 50 ML* 50 ML IVPB SCH (20:28)
[2020-01-21] MEDS: Cholecalciferol TAB* 1000 UNITS PO SCH (20:31)
[2020-01-21] MEDS: Azithromycin 500 mg/250 ml NS 500 MG/250 ML BAG IVPB SCH (21:21)
[2020-01-22] MEDS: Heparin VIAL(*) 5000 UNITS/ML VIAL (FIVE THOUSAND) SUBCUT SCH ×3 (05:34→21:13)
[2020-01-22 09:03] LABS: ABS Eosinophils 0.2 10^3/ul (0-0.6); ABS Lymphocytes 1.5 10^3/ul (1.0-4.8); ABS Monocytes 0.6 10^3/ul (0-0.8); ABS Neutrophils 5.9 10^3/ul (1.5-7.7); Eosinophil % 2.4 %; Hematocrit 35 % (35-47); Hemoglobin 12.3 g/dL (12.0-16.0); Lymphocyte % 17.9 %; Mean Corpuscular HGB Conc 35 g/dL (31-36); Mean Corpuscular Hemoglobin 31 pg (27-31); Mean Corpuscular Volume 88 fL (80-97); Mean Platelet Volume 7.3 fL (7.4-10.4); Platelet Count 212 10^3/uL (150-450); Red Blood Count 4.03 10^6 /uL (3.70-4.87); Red Cell Distribution Width 14 % (10-15); White Blood Count 8.1 10^3/uL (3.5-10.8)
[2020-01-22 09:23] LABS: BUN/Creatinine Ratio 9.5 (8-20); C Reactive Protein 101.62 mg/L (<8.01); Calcium 9.1 mg/dL (8.6-10.3); EGFR African American 116.6 (>60); EGFR Non-African American 96.4 (>60)
[2020-01-22] MEDS: Acetaminophen TAB* 325 MG PO PRN ×2 (09:51→20:12)
--- NOTE | 2020-01-22 14:41 | PN ---
Subjective Date of Service: 01/22/20 Interval History: Stepped down from ICU. Tmax 100.0 yesterday AM. right arm is less red and swollen. Still with dry cough but SOB is improved. Still prominent muscle aches and a WILSON. sleeping is fragmented with interruptions. Denies abdominal pain, chest pain, N/V, diarrhea, constipation. Objective Active Medications: Acetaminophen (Tylenol Tab*) 650 mg PO Q6H PRN PRN Reason: MILD PAIN or TEMP > 100.4 Last Admin: 01/22/20 09:51 Dose: 650 mg Albuterol (Ventolin Hfa Inhaler*) 2 puff INH Q2H PRN PRN Reason: SOB/WHEEZING Alprazolam (Xanax Tab*) 0.25 mg PO TID PRN PRN Reason: ANXIETY Atorvastatin Calcium (Lipitor*) 10 mg PO QPM [facility] Last Admin: 01/21/20 18:45 Dose: 10 mg Cholecalciferol (Vitamin D Tab*) 1,000 units PO BEDTIME [facility] Last Admin: 01/21/20 20:31 Dose: 1,000 units Fluticasone Propionate (Flonase Nasal [place] 50mcg*) 1 spray BOTH NARES DAILY PRN PRN Reason: CONGESTION Heparin Sodium (Porcine) (Heparin Vial(*)) 5,000 units SUBCUT Q8HR [facility] Last Admin: 01/22/20 05:34 Dose: 5,000 units Azithromycin (Zithromax 500 Mg/250 Ml) 500 mg in 250 mls @ 250 mls/hr IVPB Q24H [facility] Last Admin: 01/21/20 21:21 Dose: 250 mls/hr Ceftriaxone Sodium 1 gm/ (Sodium Chloride) 50 mls @ 100 mls/hr IVPB Q24H [facility] Last Admin: 01/21/20 20:28 Dose: 100 mls/hr Multivitamins/Minerals (Theragran/Minerals Tab*) 1 tab PO QPM [facility] Last Admin: 01/21/20 18:44 Dose: 1 tab Vital Signs - 8 hr 01/22/20 01/22/20 01/22/20 07:00 08:00 11:00 Temperature 98.7 F 99.5 F Pulse Rate 95 84 Respiratory 18 18 16 Rate Blood Pressure 126/66 125/67 (mmHg) O2 Sat by Pulse 98 98 Oximetry Oxygen Devices in Use Now: None Appearance: NAD Eyes: No Scleral Icterus Ears/Nose/Mouth/Throat: NL Teeth, Lips, Gums Neck: NL Appearance and Movements; NL JVP Respiratory: Symmetrical Chest Expansion and Respiratory Effort, Clear to Auscultation Cardiovascular: NL Sounds; No Murmurs; No JVD Abdominal: NL Sounds; No Tenderness; No Distention, No Hepatosplenomegaly Extremities: No Edema Skin: - - slight erythema and warmth and swelling in RUE. full ROM in elbow. Neurological: Alert and Oriented x 3 Nutrition: Taking PO's Result Diagrams: 01/22/20 08:48 01/22/20 08:48 Additional Lab and Data: Laboratory Results - last 24 hr 01/21/20 01/22/20 01/22/20 14:30 08:48 08:48 WBC 8.1 RBC 4.03 Hgb 12.3 Hct 35 MCV 88 MCH 31 MCHC 35 RDW 14 Plt Count 212 MPV 7.3 L Neut % (Auto) 72.5 Lymph % (Auto) 17.9 [place] % (Auto) 6.8 Eos % (Auto) 2.4 Baso % (Auto) 0.4 Absolute Neuts (auto) 5.9 Absolute Lymphs (auto) 1.5 Absolute Monos (auto) 0.6 Absolute Eos (auto) 0.2 Absolute Basos (auto) 0.0 Absolute Nucleated RBC 0.0 Nucleated RBC % 0.0 Sodium 138 Potassium 4.0 Chloride 105 Carbon Dioxide 26 Anion Gap 7 BUN 6 Creatinine 0.63 Est GFR ( Amer) 116.6 Est GFR (Non-Af Amer) 96.4 BUN/Creatinine Ratio 9.5 Glucose 153 H Calcium 9.1 Magnesium 2.0 C-Reactive Protein 101.62 H Urine Color Yellow Urine Appearance Clear Urine pH 7.0 Ur Specific [place] 1.010 Urine Protein Negative Urine Ketones Negative Urine Blood Negative Urine Nitrate Negative Urine Bilirubin Negative Urine Urobilinogen Negative Ur Leukocyte Esterase Negative Urine Glucose Negative Urine Ascorbic Acid * A Microbiology and Other Data: Microbiology 01/20/20 20:45 Blood Venous Aerobic Blood Culture - Preliminary No Growth Day 1 01/20/20 20:45 Blood Venous Anaerobic Blood Culture - Preliminary No Growth Day 1 01/20/20 20:45 Blood Venous Aerobic Blood Culture - Preliminary No Growth Day 1 01/20/20 20:45 Blood Venous Anaerobic Blood Culture - Preliminary No Growth Day 1 01/21/20 01:06 Nasal Nasal Screen MRSA (PCR) - Final Mrsa Not Detected Assess/Plan/Problems-Billing Assessment: 59 yo female PMH breast cancer s/p radical lymph node dissection on right and b/ l mastectomy, obesity (BMI 35.7), HLD, right arm lymphedema p/w acute onset of SOB, dry cough, right arm warmth, swelling, - Patient Problems (1) Cellulitis of right arm Current Visit: Yes Status: Acute Code(s): L03.113 - CELLULITIS OF RIGHT UPPER LIMB SNOMED Code(s): 326010098 Comment: s/p 1 dose of vancomycin yesterday. Will add MRSA nares. Continue cftx for now. improving (2) Shortness of breath Current Visit: Yes Status: Acute Code(s): R06.02 - SHORTNESS OF BREATH SNOMED Code(s): 465373428 Comment: CXR and CTA chest w/o e/o respiratory disease. never smoker, no wheezing, never asthma. COVID-19 rule out. (3) Sepsis Current Visit: Yes Status: Acute Comment: fever (100.8), tachycardia, leukocystosis(resolved). source right arm cellulitis. covid19 rule out still pending rapid flu negative CXR, CT chest negative. f/u BCx, negative to date UA okay. (4) HLD (hyperlipidemia) Current Visit: Yes Status: Acute Code(s): E78.5 - HYPERLIPIDEMIA, UNSPECIFIED SNOMED Code(s): 97900363 (5) Hyperglycemia Current Visit: Yes Status: Acute Code(s): R73.9 - HYPERGLYCEMIA, UNSPECIFIED SNOMED Code(s): 37648450 Comment: add A1c (6) Myalgia Current Visit: Yes Status: Acute Code(s): M79.10 - MYALGIA, UNSPECIFIED SITE SNOMED Code(s): 98825064 Comment: check CK. (7) Full code status Current Visit: Yes Status: Acute Code(s): Z78.9 - OTHER SPECIFIED HEALTH STATUS SNOMED Code(s): 734806193 (8) DVT prophylaxis Current Visit: Yes Status: Acute Code(s): Z29.9 - ENCOUNTER FOR PROPHYLACTIC MEASURES, UNSPECIFIED SNOMED Code(s): 629097023 Comment: heparin 5000 TID Status and Disposition: medicine inpatient.
[2020-01-22] MEDS: Atorvastatin* 10 MG TAB PO SCH (17:27)
[2020-01-22] MEDS: Multivitamins/Minerals TAB PO SCH (17:27)
[2020-01-22] MEDS: Cholecalciferol TAB* 1000 UNITS PO SCH (20:00)
[2020-01-22] MEDS: cefTRIAXone(*) 1 GM in NS 0.9% 50 ML* 50 ML IVPB SCH (20:00)
[2020-01-22] MEDS: Azithromycin 500 mg/250 ml NS 500 MG/250 ML BAG IVPB SCH (21:12)
[2020-01-23] MEDS: Heparin VIAL(*) 5000 UNITS/ML VIAL (FIVE THOUSAND) SUBCUT SCH (05:59)
[2020-01-23 08:20] VITALS: BP 120/57
--- NOTE | 2020-01-27 17:42 | DS ---
DISCHARGE SUMMARY: DATE OF ADMISSION: 01/20/20 DATE OF DISCHARGE: 01/23/20 ADMITTING PROVIDER: Dr. Nikolas Cueva. PRIMARY CARE PHYSICIAN: Elie Peck NP CONSULTING INTENSIVISTS: Dr. Evans White and Jillian Mitchell NP. ATTENDING PHYSICIAN ON DAY OF DISCHARGE: Yoshi Barlow MD CHIEF COMPLAINT: Fever, body aches, shortness of breath, wheezing, redness and warmth to the right arm. PRINCIPAL DIAGNOSES: 1. Sepsis secondary to right upper extremity cellulitis. 2. Shortness of breath in the setting of sinus tachycardia to the 130s in the setting of sepsis. HISTORY OF PRESENT ILLNESS/HOSPITAL COURSE: Rosalva Peres is a 59-year-old female with past medical history of hypertension; hyperlipidemia; breast cancer , status post radical mastectomy with lymph node dissection on the right in 2007. Please see H&P of Dr. Cueva for full details, but briefly, she had sudden onset of fever to 103.5, body aches, shortness of breath, and wheezing. She had redness, warmth and pain in her right arm. 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 She has a history of right upper extremity lymphedema with 2 episodes of cellulitis. Initial workup in [facility] was notable for sinus tachycardia in the 130s, fever of 100.8, tachypnea as high as 30, leukocytosis 14.7. She had a rapid influenza swab that was negative and she was tested for COVID-19 PCR. Given her respiratory rate, she was placed in the ICU for the first night and started on empiric antibiotics with ceftriaxone and azithromycin. She was given 1 dose of vancomycin on hospital day #2 and her right arm cellulitis markedly improved each day. She had negative blood cultures x5 days. MRSA nares was negative. Her leukocytosis, fever, and tachycardia resolved and shortness of breath also gradually resolved. Her initial chest x-ray demonstrated no acute cardiopulmonary process. She had a D- dimer that was checked given her breast cancer history and that was 203. She had a CT angiogram of the chest, which demonstrated no pulmonary embolism or other parenchymal disease. She was stepped down to the general medicine floor on hospital day #3 and the right arm continued to improve and her COVID PCR test came back negative. She is being discharged with continued Keflex for a total of 10-day course. Additional labs included hemoglobin A1c within normal limits at 5.5. Her CRP was initially 3, but on day prior to discharge was 101. Creatinine was 0.63, stable throughout the admission. TSH was 0.88. Troponin 0.00. LFTs within normal limits. She had an EKG which demonstrated sinus tachycardia, Q in III, and T-wave inversion in III. No ST elevations or depressions. DISCHARGE MEDICATIONS: Include: 1. Tylenol 650 mg p.o. q.6 hours p.r.n. 2. Alprazolam 0.25 mg p.o. t.i.d. p.r.n. 3. Atorvastatin 10 mg p.o. q.p.m. 4. Cephalexin 500 mg p.o. 4 times daily for 20 capsules or 7 more days to complete a 10-day course of anticoagulation. 5. Cholecalciferol 1000 units p.o. at bedtime. 6. Epinephrine 0.3 mg p.r.n. 7. Flonase 1 spray both nares daily. 8. Ibuprofen 400 mg p.o. q.6 hours p.r.n. 9. Multivitamin 1 tab p.o. q.p.m. DISPOSITION: Home. CONDITION: Improved. FOLLOWUP: Please follow up with primary care provider, Elie Peck NP, within 1 to 2 weeks or sooner as needed. TIME SPENT ON DISCHARGE: 35 minutes. [id number]/CPS #: [id number] MTDD
== END 2020-01-23 13:30 | disposition home or self-care (01) | DRG 720 ==
LOC: ED 20:14 → ICU 23:23 → MED 01-21 13:13
PROVIDERS: ADMIT Family Medicine; ATTEND Internal Medicine
DX: A41.9 Sepsis, unspecified organism (principal); L03.113 Cellulitis of right upper limb; I10 Essential (primary) hypertension; E78.5 Hyperlipidemia, unspecified; E66.9 Obesity, unspecified; I89.0 Lymphedema, not elsewhere classified; K21.9 Gastro-esophageal reflux disease without esophagitis; R73.9 Hyperglycemia, unspecified; M79.10 Myalgia, unspecified site; G47.30 Sleep apnea, unspecified; R06.02 Shortness of breath; G43.909 Migraine, unspecified, not intractable, without status migrainosus; F41.9 Anxiety disorder, unspecified; F32.9 Major depressive disorder, single episode, unspecified; Z85.3 Personal history of malignant neoplasm of breast; Z68.35 Body mass index [BMI] 35.0-35.9, adult; Z88.2 Allergy status to sulfonamides; Z91.030 Bee allergy status; Z92.21 Personal history of antineoplastic chemotherapy; Z90.13 Acquired absence of bilateral breasts and nipples; Z79.899 Other long term (current) drug therapy
CPT/HCPCS: 36415; 71045; 71275; 80048; 80053; 81003; 82550; 83036; 83605; 83735; 84443; 84484; 85025; 85379; 86140; 87040; 87641; 93005; 96365; 96367; 96375; 99285; A9270-GY; J0456; J0696; J1644; J3370; J3475; Q9967; U0002